=== PATIENT | female | born 1990 | race African-American/Black ===

== ENCOUNTER 2017-12-02 11:48 | Emergency (ER) | payer OTHER ==
[2017-12-02 11:54] VITALS: BP 138/59; PULSE 83; TEMP 98.3; BMI 48.1
--- NOTE | 2017-12-02 12:58 | PDOC ---
History of Present Illness - General Chief Complaint: Pain Stated Complaint: RT FOOT INJURY Time Seen by Provider: 12/02/17 12:52 History Source: Patient Exam Limitations: No Limitations - History of Present Illness Initial Comments: 12/02/17 13:11 Patient is here with complaints of right foot pain 2 days. 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 Had onset of pain to her right foot plantar aspect Occurred: reports: just prior to arrival Severity: reports: mild Pain Location: reports: lower extremity (right foot ) Modifying Factors: improves with: None Past History - Travel Traveled outside of the country in the last 30 days: No Close contact w/someone who was outside of country & ill: No - Past Medical History Allergies/Adverse Reactions: Allergies Allergy/AdvReac Type Severity Reaction Status Date / Time No Known Allergies Allergy Verified 12/02/17 11:54 Home Medications: Ambulatory Orders Naproxen [Naprosyn -] 500 mg PO BID #30 tablet 12/02/17 COPD: No - Suicide/Smoking/Psychosocial Hx Smoking History: Never smoked Have you smoked in the past 12 months: No Information on smoking cessation initiated: No Hx Alcohol Use: No Drug/Substance Use Hx: No Substance Use Type: Alcohol Trauma Specific PMHX - Complaint Specific PMHX Back Injury: No Neck Injury: No Review of Systems - Review of Systems Able to Perform ROS?: Yes Is the patient limited Barbadian proficient: Yes Constitutional: Yes: See HPI, Malaise. No: Symptoms Reported HEENTM: No: Symptoms Reported Respiratory: Yes: Symptoms reported Musculoskeletal: Yes: Symptoms Reported, Muscle Pain, Muscle Weakness Integumentary: Yes: Symptoms Reported, See HPI All Other Systems: Reviewed and Negative *Physical Exam - Vital Signs Last Vital Signs Temp Pulse Resp BP Pulse Ox 98.3 F 83 19 138/59 100 12/02/17 11:52 12/02/17 11:52 12/02/17 11:52 12/02/17 11:52 12/02/17 11:52 - Physical Exam General Appearance: Yes: Nourished, Appropriately Dressed, Apparent Distress, Mild Distress HEENT: positive: ROCAEL, Normal ENT Inspection, TMs Normal, Pharynx Normal Neck: positive: Supple. negative: Tender Respiratory/Chest: positive: Chest Tender, Lungs Clear Musculoskeletal: positive: Normal Inspection Extremity: positive: Normal Capillary Refill, Normal Inspection Integumentary: positive: Normal Color, Warm, Pale Neurologic: positive: tinner helper II-XII NML intact, Fully Oriented, Alert, Normal Mood/ Affect, Normal Response, Motor Strength 5 Progress Note - Progress Note Progress Note: Plantar fasciitis, will treat with NSAIDs and conservative measures *DC/Admit/Observation/Transfer Diagnosis at time of Disposition: Plantar fasciitis of right foot - Discharge Dispostion Disposition: HOME Condition at time of disposition: Stable Admit: No - Referrals - Patient Instructions Printed Discharge Instructions: DI for Plantar Fasciitis Additional Instructions: Rest, ice to area on and off for 15 minutes 4-6 times a day Avoid heavy lifting or exercise until pain and swelling is resolved or until further directed Keep area highly elevated to reduce swelling Wear supportive shoes/tennis shoes-sneakers Freeze water in a Coca-Cola bottle, and gently roll along bottom of foot to assist with icing the area Use splints/Louis wrap as directed Followup with orthopedist in one to 2 days if not improving, if significantly improved may wait one week for followup with orthopedist May consider alternative modalities including physical therapy, acupuncture or pressure, naturopathic rubs like Arnica creams May use Naprosyn 1 -under milligrams tablet every 8 hours for 2 days then as needed for pain - Post Discharge Activity Forms/Work/School Notes: Back to Work
[2017-12-02] MEDS ORDERED: KETOROLAC TROMETHAMINE 60 MG/2 ML VIAL IM ONE (13:07)
[2017-12-02] MEDS ORDERED: KETOROLAC TROMETHAMINE 60 MG/2 ML VIAL ONE (13:14)
== END 2017-12-02 13:40 | disposition home or self-care (01) ==
LOC: JERFT 11:48
PROC: 3E0233Z Introduction of Anti-inflammatory into Muscle, Percutaneous Approach (ICD-10-PCS; principal; 2017-12-02)
DX: M72.2 Plantar fascial fibromatosis (principal)
CPT/HCPCS: 99281-25

== ENCOUNTER 2017-12-30 13:34 | Emergency (ER) | payer OTHER ==
[2017-12-30 13:55] VITALS: BP 131/72; PULSE 92; TEMP 98.4; BMI 34.3
[2017-12-30 15:24] LABS: HCG,QUALITATIVE URINE NEGATIVE
--- NOTE | 2017-12-30 15:29 | PDOC ---
History of Present Illness - General Chief Complaint: Ear Problem Stated Complaint: EAR PROBLEM, BACK PAIN Time Seen by Provider: 12/30/17 15:09 History Source: Patient Exam Limitations: No Limitations - History of Present Illness Initial Comments: CHIEF COMPLAINT: 27 y/o female with right sided ear and face pain since yesterday. HISTORY OF PRESENT ILLNESS: The patient also admits to left low back pain, worse with movement for the past 1 week. She took tylenol once for the pain. She denies f/c, n/v/d, CP, SOB, cough, runny nose, nasal congestion, sore throat , toothache, hematuria, increased urinary frequency. Past History - Past Medical History Allergies/Adverse Reactions: Allergies Allergy/AdvReac Type Severity Reaction Status Date / Time No Known Allergies Allergy Verified 12/30/17 13:55 Home Medications: Ambulatory Orders Loratadine [Claritin] 10 mg PO DAILY #7 tablet 12/30/17 Nitrofurantoin Monohyd/M-Cryst [Macrobid -] 100 mg PO BID #14 capsule 12/30/17 COPD: No - Suicide/Smoking/Psychosocial Hx Smoking History: Never smoked Have you smoked in the past 12 months: No Hx Alcohol Use: No Drug/Substance Use Hx: No Substance Use Type: Alcohol Review of Systems - Review of Systems Able to Perform ROS?: Yes Constitutional: No: Chills, Fever HEENTM: Yes: Ear Pain (right). No: Ear Discharge, Nose Pain, Nose Congestion, Tinnitus, Hearing Loss, Throat Pain, Mouth Pain, Dental Problems, Difficulty Swallowing : No: Burning, Dysuria, Frequency, Flank Pain, Hematuria Musculoskeletal: Yes: Back Pain (right lower) Neurological: No: Symptoms reported *Physical Exam - Vital Signs Last Vital Signs Temp Pulse Resp BP Pulse Ox 98.4 F 92 H 16 131/72 100 12/30/17 13:50 12/30/17 13:50 12/30/17 13:50 12/30/17 13:50 12/30/17 13:50 - Physical Exam Comments: morbidly obese ambulatory female in NAD or obvious discomfort. General Appearance: Yes: Nourished, Appropriately Dressed HEENT: positive: EOMI, ROCAEL, Normal ENT Inspection, Pharynx Normal, TM Bulging ( left side; no erythema. good light reflex), Other (No tooth pain or gingival edema. No swelling to face. ). negative: Pharyngeal Erythema, Tonsillar Exudate, Tonsillar Erythema, Nasal Congestion, Sinus Tenderness, TM Dull, TM Erythema Neck: negative: Lymphadenopathy (R), Lymphadenopathy (L) Gastrointestinal/Abdominal: positive: Other (No flank pain b/l. No suprapubic TTP). negative: Tender Musculoskeletal: positive: Other (No midline lumbar spine TTP or step offs. MInimal pain with palpation of right lumbar paravertebral muscles. ). negative : CVA Tenderness (R), CVA Tenderness (L) Medical Decision Making - Medical Decision Making A/P: 27 y/o female with right sided ear and face pain since yesterday with right low back pain worse with movement x 1 week. Plan is as follows: 1. UA/hcg 2. PO motrin 3. PO claritin Patient cannot wait for urine to result because she has to go to work. Will discharge to home with rx for 1 week of claritin for ear pain and macrobid for UTI. States we will call her with any abnormal results. Suggested motrin for pain as well, follow up with doctor and return to the ER with any worsening or concerning symptoms. The patient verbalizes understanding of all instructions, has no further questions and is awaiting discharge. *DC/Admit/Observation/Transfer Diagnosis at time of Disposition: Earache on right Back pain Qualifiers: Back pain location: low back pain Chronicity: acute Back pain laterality: right Sciatica presence: without sciatica Qualified Code(s): M54.5 - Low back pain UTI (urinary tract infection) Qualifiers: Urinary tract infection type: acute cystitis Hematuria presence: without hematuria Qualified Code(s): N30.00 - Acute cystitis without hematuria - Discharge Dispostion Disposition: HOME Condition at time of disposition: Good - Prescriptions Prescriptions: Loratadine [Claritin] 10 mg PO DAILY #7 tablet Nitrofurantoin Monohyd/M-Cryst [Macrobid -] 100 mg PO BID #14 capsule - Referrals Referrals: Renetta Marin MD [Primary Care Provider] - Call tomorrow - Patient Instructions Printed Discharge Instructions: DI for Low Back Pain, DI for Ear Pain-Adult, DI for Urinary Tract Infection (UTI) Additional Instructions: Discharge Instructions: -2 prescriptions have been sent to your pharmacy; please take for ear pain and UTI. -Take motrin if needed for pain as well every 6 hours -Follow up with Dr. Marin in 1 week -Return to the ER with any worsening or concerning symptoms. - Post Discharge Activity
[2017-12-30 16:39] LABS: URINE APPEARANCE CLOUDY; URINE BILIRUBIN NEGATIVE (NEGATIVE); URINE BLOOD NEGATIVE (NEGATIVE); URINE COLOR YELLOW; URINE GLUCOSE (UA) NEGATIVE (NEGATIVE); URINE KETONE NEGATIVE (NEGATIVE); URINE NITRITE NEGATIVE (NEGATIVE); URINE UROBILINOGEN NEGATIVE mg/dL (0.2-1.0)
[2017-12-30 16:49] LABS: URINE LEUK ESTERASE 1+ (NEGATIVE); URINE PROTEIN 1+ (NEGATIVE)
[2017-12-30 17:16] LABS: EPI CELLS MODERATE /HPF (FEW); GRANULAR CASTS 1 /lpf; URINE BACTERIA MANY /hpf (NONE SEEN); URINE MUCUS MODERATE
== END 2017-12-30 17:04 | disposition home or self-care (01) ==
LOC: JERFT 13:34
DX: H92.01 Otalgia, right ear (principal); N30.00 Acute cystitis without hematuria; M54.5 Low back pain
CPT/HCPCS: 81003; 81015; 84703; 87086; 87186; 99281-25

== ENCOUNTER 2018-04-07 20:40 | Emergency (ER) | payer OTHER ==
[2018-04-07 20:47] VITALS: BP 135/85; PULSE 86; TEMP 98.3; BMI 36.6
--- NOTE | 2018-04-07 21:02 | PDOC ---
Rapid Medical Evaluation Chief Complaint: Nausea/Vomiting Time Seen by Provider: 04/07/18 20:58 Medical Evaluation: Allergies Allergy/AdvReac Type Severity Reaction Status Date / Time No Known Allergies Allergy Verified 04/07/18 20:42 Vital Signs Temp Pulse Resp BP Pulse Ox 98.3 F 86 18 135/85 100 04/07/18 20:43 04/07/18 20:43 04/07/18 20:43 04/07/18 20:43 04/07/18 20:43 04/07/18 20:59 I have performed a brief in-person evaluation of this patient. The patient presents with a chief complaint of: RUQ pain with n/v/d Pertinent physical exam findings: Tender RUQ. I have ordered the following: urine, labs, sono The patient will proceed to the ED for further evaluation. Discharge Disposition - Diagnosis Abdominal pain - Referrals Referrals: Renetta Marin MD [Primary Care Provider] - - Patient Instructions - Post Discharge Activity
--- NOTE | 2018-04-07 21:56 | PDOC ---
Attending Attestation - HPI HPI: 04/07/18 22:48 Patient is a 27 year old female with no significant past medical history who presents to the ED with complaints of abdominal pain that began x2 days ago. Patient reports abdominal pain is a constant, dull 5/10. She reports abdominal pain initially began in the superpubic area but has since radiated to the epigastric region where is has remained, prompting her to come into the ED for further evaluation. Denies chest pain, sob. Denies contact with sick individuals, out of state travelling. Denies dysuria, hematuria, constipation, diarrhea. Denies any other symptoms. Allergies: None Social history: No smoking. No alcohol. No illicit drugs. Surgical history: None PMD: Dr. Renetta Marin. <Juanito Gray - Last Filed: 04/07/18 22:48> - Resident Resident Name: Ronaldo Soni - ED Attending Attestation I have performed the following: I have examined & evaluated the patient, The case was reviewed & discussed with the resident, I agree w/resident's findings & plan, Exceptions are as noted - Physicial Exam PE: 04/12/18 19:22 *Physical Exam General Appearance: Yes: Appropriately Dressed. No: Apparent Distress, Intoxicated HEENT: positive: EOMI, ROCAEL, Normal ENT Inspection, Normal Voice, TMs Normal, Pharynx Normal. negative: Pale Conjunctivae, Photophobia, Scleral Icterus (R), Scleral Icterus (L) Neck: positive: Trachea midline, Normal Thyroid, Supple. negative: Tender, Rigid, Carotid bruit, Stridor, Lymphadenopathy (R), Lymphadenopathy (L), Thyromegaly Respiratory/Chest: positive: Lungs Clear, Normal Breath Sounds. negative: Chest Tender, Respiratory Distress, Accessory Muscle Use, Labored Respiration, RES, Crackles, Rales, Rhonchi, Stridor, Wheezing, Dullness Cardiovascular: positive: Regular Rhythm, Regular Rate, S1, S2. negative: Edema , JVD, Murmur, Bradycardia, Tachycardia Vascular Pulses: Dorsalis-Pedis (R): 2+, Doralis-Pedis (L): 2+ Gastrointestinal/Abdominal: positive: Normal Bowel Sounds, Flat, Soft. negative : Tender, Organomegaly, Pulsatile Mass, Increased Bowel Sounds, Decreased BS, Distended, Guarding, Rebound, Hernia, Hepatomegaly, Spleenomegaly Lymphatic: negative: Adenopathy, Tenderness Musculoskeletal: positive: Normal Inspection. negative: CVA Tenderness, Decreased Range of Motion Extremity: positive: Normal Capillary Refill, Normal Inspection, Normal Range of Motion, Pelvis Stable. negative: Tender, Pedal Edema, Swelling, Erythema Integumentary: positive: Normal Color, Dry, Warm. negative: Cyanotic, Erythema , Jaundice, Rash Neurologic: positive: donor technician II-XII NML intact, Fully Oriented, Alert, Normal Mood/ Affect, Motor Strength 5/5. negative: EOM Palsy, Facial Droop, Sensory Deficit - Medical Decision Making 04/12/18 19:23 Pt treated and released <Hugo Lino - Last Filed: 04/12/18 19:23>
[2018-04-07] MEDS ORDERED: ONDANSETRON 4 MG/2 ML VIAL IVPUSH ONE (22:00)
[2018-04-07] MEDS ORDERED: SODIUM CHLORIDE 0.9% 1000 ML INFUS.BAG IV ONE (22:00)
[2018-04-07] MEDS ORDERED: ONDANSETRON 4 MG/2 ML VIAL ONE ×2 (22:18→22:54)
[2018-04-07 22:42] LABS: HCG,QUALITATIVE URINE NEGATIVE
[2018-04-07 22:43] LABS: URINE APPEARANCE CLEAR; URINE BILIRUBIN NEGATIVE (<2.0 mg/dL); URINE COLOR LTYELLOW; URINE GLUCOSE (UA) NEGATIVE (NEGATIVE); URINE KETONE NEGATIVE (NEGATIVE); URINE LEUK ESTERASE NEGATIVE (NEGATIVE); URINE NITRITE NEGATIVE (NEGATIVE); URINE PROTEIN NEGATIVE (NEGATIVE); URINE UROBILINOGEN NEGATIVE mg/dL (0.2-1.0)
[2018-04-07 22:47] LABS: BASO % 0.9 % (0-2.0); HEMATOCRIT 34.6 % (32.4-45.2); HEMOGLOBIN 11.1 GM/dL (10.7-15.3); LYMPH % 30.3 % (8-40); MCH 20.1 pg (25.7-33.7); MCHC 32.2 g/dl (32.0-36.0); MEAN CELL VOLUME 62.5 fl (80-96); MEAN PLT VOLUME 9.1 fl (7.5-11.1); MONO % 7.8 % (3.8-10.2); PLATELET COUNT 416 K/MM3 (134-434); RBC 5.53 M/mm3 (3.60-5.2); RDW 18.6 % (11.6-15.6); WHITE BLOOD COUNT 9.3 K/mm3 (4.0-10.0)
[2018-04-07 23:02] LABS: ALBUMIN 3.8 g/dl (3.4-5.0); ANION GAP 9 (8-16); BILIRUBIN,TOTAL 0.4 mg/dL (0.2-1.0); BLOOD UREA NITROGEN 15 mg/dL (7-18); CALCIUM 9.2 mg/dL (8.5-10.1); CHLORIDE 104 mmol/L (98-107); CO2 28 mmol/L (21-32); CREATININE 0.8 mg/dL (0.55-1.02); GLUCOSE,RANDOM 84 mg/dL (74-106); LIPASE 97 U/L (73-393); POTASSIUM 3.9 mmol/L (3.5-5.1); SGOT/AST 13 U/L (15-37); SGPT/ALT 17 U/L (12-78); SODIUM 141 mmol/L (136-145); TOT PROT 8.1 g/dl (6.4-8.2)
[2018-04-07 23:03] LABS: ALK PHOS 76 U/L (45-117)
--- NOTE | 2018-04-08 00:29 | PDOC ---
History of Present Illness - General Chief Complaint: Nausea/Vomiting Stated Complaint: WEAK Time Seen by Provider: 04/07/18 20:58 History Source: Patient Exam Limitations: No Limitations - History of Present Illness Initial Comments: 04/08/18 00:28 The patient is a 27F with no PMH who presents with abdominal pain. The patient states that she's had 2 days of abdominal pain located in her epigastrium which she describes as pressure, nonradiating, not exacerbated or alleviated by any factors, and associated with diarrhea, nausea, and NBNB vomiting. She denies any fever, chills, blood in diarrhea, CP, SOB. Past History - Past Medical History Allergies/Adverse Reactions: Allergies Allergy/AdvReac Type Severity Reaction Status Date / Time No Known Allergies Allergy Verified 04/07/18 20:42 Home Medications: Ambulatory Orders Loratadine [Claritin] 10 mg PO DAILY #7 tablet 12/30/17 Nitrofurantoin Monohyd/M-Cryst [Macrobid -] 100 mg PO BID #14 capsule 12/30/17 Ondansetron [Zofran -] 4 mg PO BID #10 tablet 04/08/18 COPD: No - Suicide/Smoking/Psychosocial Hx Smoking History: Never smoked Have you smoked in the past 12 months: No Information on smoking cessation initiated: No Hx Alcohol Use: Yes Drug/Substance Use Hx: No Substance Use Type: Alcohol Review of Systems - Review of Systems Able to Perform ROS?: Yes Comments:: 04/08/18 00:41 GENERAL/CONSTITUTIONAL: No fever or chills. No weakness. HEAD, EYES, EARS, NOSE AND THROAT: No change in vision. No ear pain or discharge. No sore throat. CARDIOVASCULAR: No chest pain, palpitations, or lightheadedness. RESPIRATORY: No cough, wheezing, shortness of breath, or hemoptysis. GASTROINTESTINAL: Positive for nausea, vomiting, diarrhea, and abdominal pain. GENITOURINARY: No dysuria, frequency, hematuria, or change in urination. MUSCULOSKELETAL: No joint or muscle swelling or pain. No neck or back pain. SKIN: No rash or lesions. NEUROLOGIC: No headache, numbness, tingling, weakness, loss of consciousness, or change in strength/sensation. ENDOCRINE: No increased thirst. No abnormal weight change. HEMATOLOGIC/LYMPHATIC: No anemia, easy bleeding, or history of blood clots. ALLERGIC/IMMUNOLOGIC: No hives or skin allergy. Is the patient limited German proficient: No *Physical Exam - Vital Signs Last Vital Signs Temp Pulse Resp BP Pulse Ox 98.3 F 86 18 135/85 100 04/07/18 20:43 04/07/18 20:43 04/07/18 20:43 04/07/18 20:43 04/07/18 20:43 - Physical Exam Comments: 04/08/18 00:42 GENERAL: Well developed, well nourished. Awake and alert. No acute distress. HEENT: Normocephalic, atraumatic. Hearing grossly normal. Moist mucous membranes. PERRLA, EOMI. No conjunctival pallor. Sclera are non-icteric. NECK: Supple. Full ROM. CARDIOVASCULAR: Regular rate and rhythm. No murmurs, rubs, or gallops. PULMONARY: No evidence of respiratory distress. Lungs clear to auscultation bilaterally. No wheezing, rales or rhonchi. ABDOMINAL: Soft. Tender to deep palpation in epigastrium. Negative Choe's sign.. Non-distended. GENITOURINARY: No CVA tenderness bilaterally. MUSCULOSKELETAL: Normal range of motion at all joints. No bony deformities or tenderness. EXTREMITIES: No cyanosis. No clubbing. No edema. No calf tenderness or swelling. SKIN: Warm and dry. Normal capillary refill. No rashes. No jaundice. NEUROLOGICAL: Alert, awake, appropriate. Cranial nerves 2-12 intact. Normal speech. Gait is normal without ataxia. PSYCHIATRIC: Cooperative. Good eye contact. Appropriate mood and affect. ED Treatment Course - LABORATORY CBC & Chemistry Diagram: 04/07/18 22:00 04/07/18 22:00 - ADDITIONAL ORDERS Additional order review: Laboratory Results 04/07/18 04/07/18 22:00 22:00 Sodium 141 Potassium 3.9 Chloride 104 Carbon Dioxide 28 Anion Gap 9 BUN 15 Creatinine 0.8 Creat Clearance w eGFR > 60 Random Glucose 84 Calcium 9.2 Total Bilirubin 0.4 AST 13 L ALT 17 Alkaline Phosphatase 76 Total Protein 8.1 Albumin 3.8 Lipase 97 Urine Color Ltyellow Urine Appearance Clear Urine pH 5.0 Ur Specific [place] 1.018 Urine Protein Negative Urine Glucose (UA) Negative Urine Ketones Negative Urine Blood Negative Urine Nitrite Negative Urine Bilirubin Negative Urine Urobilinogen Negative Ur Leukocyte Esterase Negative Urine HCG, Qual Negative 04/07/18 22:00 RBC 5.53 H MCV 62.5 L MCHC 32.2 RDW 18.6 H MPV 9.1 Neutrophils % 59.0 Lymphocytes % 30.3 Monocytes % 7.8 Eosinophils % 2.0 Basophils % 0.9 - Medications Given in the ED: ED Medications Discontinued Medications Generic Name Dose Route Start Last Admin Trade Name Sasha PRN Reason Stop Dose Admin Ondansetron HCl 4 mg 04/07/18 22:00 04/07/18 23:01 Zofran Injection IVPUSH 04/07/18 22:01 4 mg ONCE ONE Administration Sodium Chloride 1,000 ml 04/07/18 22:00 04/07/18 23:01 Normal Saline - IV 04/07/18 22:01 1,000 ml ONCE ONE Administration Medical Decision Making - Medical Decision Making 04/08/18 00:43 The patient is a 27F with no PMH who presents to the ER with complaints of abdominal pain, vomiting, and diarrhea which started yesterday. U/S of RUQ negative for cholecystitis/lithiasis. CBC, CMP, and UA WNL. Given 1 L and zofran. Pt states she feels much better. Will d/c home with zofran. *DC/Admit/Observation/Transfer Diagnosis at time of Disposition: Abdominal pain Qualifiers: Abdominal location: epigastric Qualified Code(s): R10.13 - Epigastric pain - Discharge Dispostion Disposition: HOME Condition at time of disposition: Stable Decision to Admit order: No - Prescriptions Prescriptions: Ondansetron [Zofran -] 4 mg PO BID #10 tablet - Referrals Referrals: Renetta Marin MD [Primary Care Provider] - - Patient Instructions Printed Discharge Instructions: DI for Viral Gastroenteritis -- Adult Additional Instructions: Please follow up with your primary care physician in 2-3 days. Please return to the ER if you have any signs or symptoms of chest pain, shortness of breath, uncontrollable fever, chills, nausea, vomiting, numbness, tingling, or weakness in any part of your body, changes in vision, or slurred speech. Please take your medications as prescribed. Please return to the ER if symptoms persist, worsen, or new symptoms arise. - Post Discharge Activity
== END 2018-04-08 00:32 | disposition home or self-care (01) ==
LOC: JER 20:40
PROC: 3E033GC Introduction of Other Therapeutic Substance into Peripheral Vein, Percutaneous Approach (ICD-10-PCS; principal; 2018-04-07)
DX: A08.4 Viral intestinal infection, unspecified (principal); B97.89 Other viral agents as the cause of diseases classified elsewhere
CPT/HCPCS: 36415; 76705-TC; 80053; 81003; 83690; 84703; 85025; 99282-25; J7030

== ENCOUNTER 2018-09-20 21:17 | Emergency (ER) | payer OTHER ==
[2018-09-20 21:25] VITALS: BP 161/85; PULSE 104; TEMP 98.9; BMI 38.6
--- NOTE | 2018-09-20 21:25 | PDOC ---
Rapid Medical Evaluation Time Seen by Provider: 09/20/18 21:22 Medical Evaluation: Allergies Allergy/AdvReac Type Severity Reaction Status Date / Time No Known Allergies Allergy Verified 04/07/18 20:42 09/20/18 21:22 Pt presents to the ED for difficulty breathing and throat pain. Feels like she is choking. States that the cool air makes her symptoms better Exam: Tonsils mildly erythematous, no exudate or edema Orders: Rapid strep Pt to proceeds to the ED for further evaluation Discharge Disposition - Diagnosis Choking sensation - Referrals - Patient Instructions - Post Discharge Activity
--- NOTE | 2018-09-20 22:33 | PDOC ---
History of Present Illness - General Chief Complaint: Sore Throat Stated Complaint: CHOKING SENSATION Time Seen by Provider: 09/20/18 21:22 - History of Present Illness Initial Comments: 09/20/18 22:29 27-year-old female without comorbidities presents for evaluation of sore throat and hoarse voice and reflux-like symptoms times one week. No other associated symptoms. He was seen at outside Hospital and diagnosed with viral pharyngitis Past History - Past Medical History Allergies/Adverse Reactions: Allergies Allergy/AdvReac Type Severity Reaction Status Date / Time No Known Allergies Allergy Verified 09/20/18 21:23 Home Medications: Ambulatory Orders Loratadine [Claritin] 10 mg PO DAILY #7 tablet 12/30/17 Famotidine [Pepcid] 20 mg PO DAILY #10 tablet 09/20/18 COPD: No - Suicide/Smoking/Psychosocial Hx Smoking History: Never smoked Have you smoked in the past 12 months: No Hx Alcohol Use: Yes Drug/Substance Use Hx: No Substance Use Type: Alcohol Review of Systems - Review of Systems HEENTM: Yes: Throat Pain ABD/GI: Yes: Indigestion All Other Systems: Reviewed and Negative *Physical Exam - Vital Signs Last Vital Signs Temp Pulse Resp BP Pulse Ox 98.9 F 104 H 18 161/85 100 09/20/18 21:23 09/20/18 21:23 09/20/18 21:23 09/20/18 21:23 09/20/18 21:23 - Physical Exam Comments: 09/20/18 22:30 HEAD: NC/AT EYES: Conjuntiva clear Ears: Canals and TM's normal NOSE: No d/c THROAT: Moist mucous membrances, oral pharanx clear, uvula midline NECK: Supple without adenopathy CARDIAC: S1 S2 LUNGS: CTA Full and Equal breath sounds ABDOMEN: Soft NT ND MS: Full ROM in all joints without edema NEUROLOGIC: No gross sensory or motor deficits, NVID SKIN: Normal color and temperature no lesions or rashes ED Treatment Course - ADDITIONAL ORDERS Additional order review: 09/20/18 21:26 Group A Strep Rapid Antigen - Final Throat Medical Decision Making - Medical Decision Making 09/20/18 22:30 This most likely is a viral pharyngitis with reflux like symptoms. Up place her on an H2 jud and have her follow-up with her primary care physician *DC/Admit/Observation/Transfer Diagnosis at time of Disposition: Viral pharyngitis, GERD (gastroesophageal reflux disease) Diagnosis at time of Disposition: (Ruled Out): Choking sensation - Discharge Dispostion Disposition: HOME Condition at time of disposition: Stable Decision to Admit order: No - Referrals Referrals: Renetta Marin MD [Primary Care Provider] - - Patient Instructions Printed Discharge Instructions: Viral Pharyngitis, DI for Viral Pharyngitis, Gastroesophageal Reflux Disease (Alternative Therapy), DI for Gastroesophageal Reflux Disease (GERD), GERD Diet Additional Instructions: Return to the emergency room should symptoms worsen or go unresolved. Please take the Pepcid as directed follow-up with your primary care physician in one to 2 days for further evaluation and treatment options. - Post Discharge Activity
== END 2018-09-20 22:41 | disposition home or self-care (01) ==
LOC: JERFT 21:17
DX: J02.9 Acute pharyngitis, unspecified (principal); B97.89 Other viral agents as the cause of diseases classified elsewhere; K21.9 Gastro-esophageal reflux disease without esophagitis
CPT/HCPCS: 87070; 87430; 99281-25

== ENCOUNTER 2019-08-19 09:59 | Emergency (ER) | payer OTHER ==
[2019-08-19 10:10] VITALS: BP 134/88; PULSE 88; TEMP 98.5; BMI 41.1
--- NOTE | 2019-08-19 10:25 | PDOC ---
History of Present Illness - General Chief Complaint: Cold Symptoms Stated Complaint: Cough Time Seen by Provider: 08/19/19 10:18 History Source: Patient - History of Present Illness Associated Symptoms: reports: cough, nasal drainage, sore throat. denies: earache, facial pain, fever/chills, nasal congestion, shortness of breath Past History - Travel Traveled outside of the country in the last 30 days: No - Past Medical History Allergies/Adverse Reactions: Allergies Allergy/AdvReac Type Severity Reaction Status Date / Time No Known Allergies Allergy Verified 09/20/18 21:23 Home Medications: Ambulatory Orders Loratadine [Claritin] 10 mg PO DAILY #7 tablet 12/30/17 Famotidine [Pepcid] 20 mg PO DAILY #10 tablet 09/20/18 Azithromycin 250 mg PO DAILY 5 Days #6 tablet 08/19/19 Benzonatate [Tessalon Pearls -] 100 mg PO TID #21 capsule 08/19/19 Cetirizine HCl 10 mg PO DAILY 30 Days #30 tablet 08/19/19 COPD: No - Immunization History Immunization Up to Date: No - Psycho Social/Smoking Cessation Hx Smoking History: Unknown if ever smoked Have you smoked in the past 12 months: No Information on smoking cessation initiated: No Hx Alcohol Use: No Drug/Substance Use Hx: No Substance Use Type: Alcohol Review of Systems - Review of Systems Is the patient limited Khmer proficient: No Constitutional: No: Chills, Fever HEENTM: Yes: Throat Pain. No: Throat Swelling Respiratory: Yes: Cough, Productive cough. No: Shortness of Breath, Wheezing Cardiac (ROS): No: Chest Pain, Chest Tightness ABD/GI: No: Diarrhea, Nausea, Vomiting *Physical Exam - Vital Signs Last Vital Signs Temp Pulse Resp BP Pulse Ox 98.5 F 88 18 134/88 100 08/19/19 10:05 08/19/19 10:05 08/19/19 10:05 08/19/19 10:05 08/19/19 10:05 - Physical Exam General Appearance: Yes: Nourished HEENT: positive: TMs Normal, Tonsillar Erythema, Rhinorrhea. 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 NML intact, Fully Oriented, Alert, Normal Mood/ Affect, Normal Response, Motor Strength 03/26 Medical Decision Making - Medical Decision Making 08/19/19 13:22 28y/o F with sorethroat and cough X 3 days denies fever or chills non smoker strep neg supportive measures advised Discharge - Discharge Information Problems reviewed: Yes Clinical Impression/Diagnosis: URI, acute Condition: Stable Disposition: HOME - Admission No - Additional Discharge Information Prescriptions: Azithromycin 250 mg PO DAILY 5 Days #6 tablet Benzonatate [Tessalon Pearls -] 100 mg PO TID #21 capsule Cetirizine HCl 10 mg PO DAILY 30 Days #30 tablet Prescription Drug Monitoring Program (I-STOP) results: I-STOP not reviewed - Follow up/Referral Referrals: Renetta Marin MD [Primary Care Provider] - - Patient Discharge Instructions Patient Printed Discharge Instructions: How to Avoid a Cold or Flu, DI for Common Cold Additional Instructions: Please increase fluids take medications as prescribed follow up with your PCP return to the ER If worsening symptoms occurs. - Post Discharge Activity
== END 2019-08-19 10:28 | disposition home or self-care (01) ==
LOC: JERFT 09:59
DX: J06.9 Acute upper respiratory infection, unspecified (principal)
CPT/HCPCS: 99281-25

== ENCOUNTER 2019-11-03 08:19 | Emergency (ER) | payer OTHER ==
[2019-11-03 08:39] VITALS: BP 127/88; PULSE 95; TEMP 98.2; BMI 39.9
--- NOTE | 2019-11-03 09:05 | PDOC ---
History of Present Illness - General Chief Complaint: Cold Symptoms Stated Complaint: COLD SYMPTOMS Time Seen by Provider: 11/03/19 09:05 - History of Present Illness Initial Comments: 11/03/19 09:05 CHIEF COMPLAINT: cold symptoms HISTORY OF PRESENT ILLNESS: 29 yo F with no PMH [facility] with cough, runny nose, congestion, body aches and subjective fever x 2 days. Patient denies any vomiting or diarrhea but reports intermittent epigastric discomfort. Patient reports she has been taking Sudafed and Nyquil and Dayquil with minimal relief. No recent travel or sick contacts. PAST MEDICAL HISTORY: Denies past medical history FAMILY HISTORY: Denies SOCIAL HISTORY: LDenies tobacco, alcohol, illicit drug use. SURGICAL HISTORY: Denies ALLERGIES: No known drug allergies REVIEW OF SYSTEMS General/Constitutional: Subjective fever, chills. Denies weakness, weight change. HEENT: Denies change in vision. Denies ear pain or discharge. Denies sore throat. Cardiovascular: Denies chest pain or shortness of breath. Respiratory: Cough. Denies wheezing, or hemoptysis. Gastrointestinal: Denies nausea, vomiting, diarrhea or constipation. Denies rectal bleeding. Genitourinary: Denies dysuria, frequency, or change in urination. Musculoskeletal: Denies joint or muscle swelling or pain. Denies neck or back pain. Skin and breasts: Denies rash or easy bruising. Neurologic: Denies headache, vertigo, loss of consciousness, or loss of sensation. Psychiatric: Denies depression or anxiety. PHYSICAL EXAM General Appearance: Well-appearing, appropriately dressed. No apparent distress. HEENT: Post nasal drip. Swollen turbinates. EOMI, PERRLA, normal ENT inspection , normal voice, TMs normal, pharynx normal. No conjunctival pallor. No photophobia, scleral icterus. Neck: Supple. Trachea midline. No tenderness, rigidity, carotid bruit, stridor , lymphadenopathy, or thyromegaly. Respiratory/Chest: Lungs CTAB. No shortness of breath, chest tenderness, respiratory distress, accessory muscle use. No crackles, rales, rhonchi, stridor , wheezing, dullness Cardiovascular: RRR. S1, S2. No JVD, murmur, bradycardia, tachycardia. Vascular Pulses: Dorsalis-Pedis (R): 2+, Dorsalis-Pedis (L): 2+ Gastrointestinal/Abdominal: Normal bowel sounds. Abdomen soft, non-distended. No tenderness or rebound tenderness. No organomegaly, pulsatile mass, guarding , hernia, hepatomegaly, splenomegaly. Lymphatic: No adenopathy, tenderness. Musculoskeletal/Extremities: Normal inspection. FROM of all extremities, normal capillary refill. Pelvis Stable. No CVA tenderness. No tenderness to extremities, pedal edema, swelling, erythema or deformity. Integumentary: Appropriate color, dry, warm. No cyanosis, erythema, jaundice or rash Neurologic: md urologist II-XII intact. Fully oriented, alert. Appropriate mood/affect. Motor strength 5/5. No appreciable EOM palsy, facial droop or sensory deficit. Past History - Past Medical History Allergies/Adverse Reactions: Allergies Allergy/AdvReac Type Severity Reaction Status Date / Time No Known Allergies Allergy Verified 11/03/19 08:36 Home Medications: Ambulatory Orders Loratadine [Claritin] 10 mg PO DAILY #7 tablet 12/30/17 Azithromycin 250 mg PO DAILY 5 Days #6 tablet 08/19/19 Cetirizine HCl 10 mg PO DAILY 30 Days #30 tablet 08/19/19 Benzonatate [Tessalon Perle -] 100 mg PO TID #21 capsule 11/03/19 Famotidine [Pepcid] 20 mg PO DAILY #10 tablet 11/03/19 Pseudoephedrine HCl [Pseudoephedrine ER] 120 mg PO BID #20 tablet.er 11/03/19 COPD: No - Immunization History Immunization Up to Date: No - Psycho Social/Smoking Cessation Hx Smoking History: Never smoked Have you smoked in the past 12 months: No Hx Alcohol Use: No Drug/Substance Use Hx: No Substance Use Type: Alcohol *Physical Exam - Vital Signs Last Vital Signs Temp Pulse Resp BP Pulse Ox 98.2 F 95 H 17 127/88 100 11/03/19 08:37 11/03/19 08:37 11/03/19 08:37 11/03/19 08:37 11/03/19 08:37 Medical Decision Making - Medical Decision Making 11/03/19 09:22 29 yo F with no PMH [facility] with cough, runny nose, congestion, body aches and subjective fever x 2 days. -flu swab flu negative. Likely viral URI, will treat symptomatically. Advised patient to take medication as prescribed and follow up with PCP in one week. Advised patient of signs and symptoms for return to ED. Patient verbalized understanding and agrees to plan. Discharge - Discharge Information Problems reviewed: Yes Clinical Impression/Diagnosis: Viral URI Condition: Stable Disposition: HOME - Admission No - Additional Discharge Information Prescriptions: Benzonatate [Tessalon Perle -] 100 mg PO TID #21 capsule Famotidine [Pepcid] 20 mg PO DAILY #10 tablet Pseudoephedrine HCl [Pseudoephedrine ER] 120 mg PO BID #20 tablet.er - Follow up/Referral Referrals: Renetta Marin MD [Primary Care Provider] - - Patient Discharge Instructions Patient Printed Discharge Instructions: DI for Viral Upper Respiratory Infection -- Adult Additional Instructions: Please take medications as prescribed. Follow-up with your primary care doctor in 1 week. If you develop worsening cough, persistent fever, vomiting, diarrhea , or any new or worsening symptoms, please return to the ER. - Post Discharge Activity Work/Back to School Note: Back to Work
== END 2019-11-03 10:02 | disposition home or self-care (01) ==
LOC: JER 08:19 → JERFT 08:19
DX: J06.9 Acute upper respiratory infection, unspecified (principal)
CPT/HCPCS: 87804; 99281-25

== ENCOUNTER 2019-11-06 11:16 | Emergency (ER) | payer OTHER ==
[2019-11-06 11:32] VITALS: BP 115/82; PULSE 105; TEMP 98.2; BMI 39.9
[2019-11-06] MEDS ORDERED: MAG HYDROX/AL HYDROX/SIMETH 30 ML UNIT-DOSE CUP PO ONE (11:59)
[2019-11-06] MEDS ORDERED: LIDOCAINE VISCOUS 2% ORAL/TOP 20 ML UNIT-DOSE CUP MM ONE (12:00)
[2019-11-06] MEDS ORDERED: diphenhydrAMINE HCL 12.5 MG/5 ML UNIT-DOSE CUPS PO ONE (12:01)
[2019-11-06] MEDS ORDERED: diphenhydrAMINE HCL 12.5 MG/5 ML BULK BOTTLE ONE (12:08)
[2019-11-06] MEDS ORDERED: MAG HYDROX/AL HYDROX/SIMETH 30 ML UNIT-DOSE CUP ONE (12:08)
[2019-11-06] MEDS ORDERED: LIDOCAINE VISCOUS 2% ORAL/TOP 20 ML UNIT-DOSE CUP ONE (12:08)
[2019-11-06 12:29] LABS: BASO % 1.1 % (0-2.0); EOS % 2.7 % (0-4.5); HEMATOCRIT 34.6 % (32.4-45.2); HEMOGLOBIN 11.1 GM/dL (10.7-15.3); LYMPH % 37.9 % (8-40); MCHC 32.2 g/dl (32.0-36.0); MEAN CELL VOLUME 59.6 fl (80-96); MEAN PLT VOLUME 8.8 fl (7.5-11.1); MONO % 6.9 % (3.8-10.2); NEUT % 51.4 % (42.8-82.8); PLATELET COUNT 419 K/MM3 (134-434); RDW 20.6 % (11.6-15.6); WHITE BLOOD COUNT 7.5 K/mm3 (4.0-10.0)
[2019-11-06 12:44] LABS: MCH 19.2 pg (25.7-33.7)
[2019-11-06 12:49] LABS: ALBUMIN 3.7 g/dl (3.4-5.0); BILIRUBIN,TOTAL 0.4 mg/dL (0.2-1); BLOOD UREA NITROGEN 6.2 mg/dL (7-18); CALCIUM 9.2 mg/dL (8.5-10.1); CREATININE 0.6 mg/dL (0.55-1.3); POTASSIUM 4.1 mmol/L (3.5-5.1); TOT PROT 7.8 g/dl (6.4-8.2)
--- NOTE | 2019-11-06 12:57 | PDOC ---
History of Present Illness - General Chief Complaint: Pain Stated Complaint: ABD. PAIN Time Seen by Provider: 11/06/19 11:34 - History of Present Illness Initial Comments: 11/06/19 12:54 29-year-old female without comorbidities presents for evaluation of abdominal pain in the epigastric area x1 day without systemic symptoms Past History - Past Medical History Allergies/Adverse Reactions: Allergies Allergy/AdvReac Type Severity Reaction Status Date / Time No Known Allergies Allergy Verified 11/06/19 11:30 Home Medications: Ambulatory Orders Loratadine [Claritin] 10 mg PO DAILY #7 tablet 12/30/17 Azithromycin 250 mg PO DAILY 5 Days #6 tablet 08/19/19 Cetirizine HCl 10 mg PO DAILY 30 Days #30 tablet 08/19/19 Benzonatate [Tessalon Perle -] 100 mg PO TID #21 capsule 11/03/19 Famotidine [Pepcid] 20 mg PO DAILY #10 tablet 11/03/19 Pseudoephedrine HCl [Pseudoephedrine ER] 120 mg PO BID #20 tablet.er 11/03/19 Famotidine [Pepcid] 20 mg PO DAILY #30 tablet 11/06/19 COPD: No - Immunization History Immunization Up to Date: No - Psycho Social/Smoking Cessation Hx Smoking History: Never smoked Have you smoked in the past 12 months: No Information on smoking cessation initiated: No Hx Alcohol Use: No Drug/Substance Use Hx: No Substance Use Type: Alcohol Review of Systems - Review of Systems ABD/GI: Yes: See HPI, Poor Appetite, Indigestion. No: Constipated, Diarrhea, Nausea, Vomiting *Physical Exam - Vital Signs Last Vital Signs Temp Pulse Resp BP Pulse Ox 98.2 F 105 H 18 115/82 98 11/06/19 11:30 11/06/19 11:30 11/06/19 11:30 11/06/19 11:30 11/06/19 11:30 - Physical Exam 11/06/19 12:55 GENERAL: The patient is awake, alert, and fully oriented, in no acute distress. HEAD: Normal with no signs of trauma. EYES: sclera anicteric, conjunctiva clear. ENT: Ears normal tympanic membranes normal oropharynx clear uvula midline NECK: Normal range of motion LUNGS: Breath sounds equal, clear to auscultation bilaterally. No wheezes, and no crackles. HEART: S1 and S2 without murmur, rub or gallop. ABDOMEN: Soft, nontender, normoactive bowel sounds. No guarding, no rebound. No masses. EXTREMITIES: Normal range of motion, no edema. No clubbing or cyanosis. No cords, erythema, or tenderness. NEUROLOGICAL: Cranial nerves II through XII grossly intact. Normal speech, normal gait. PSYCH: Normal mood, normal affect. SKIN: Warm, Dry, normal turgor, no rashes or lesions noted. ED Treatment Course - LABORATORY CBC & Chemistry Diagram: 11/06/19 12:16 11/06/19 12:16 - ADDITIONAL ORDERS Additional order review: Laboratory Results 11/06/19 11/06/19 11/06/19 12:16 12:16 12:16 Sodium 140 Potassium 4.1 Chloride 106 Carbon Dioxide 27 Anion Gap 7 L BUN 6.2 L Creatinine 0.6 Est GFR (CKD-EPI)AfAm 141.76 Est GFR (CKD-EPI)NonAf 122.31 Random Glucose 105 Calcium 9.2 Total Bilirubin 0.4 AST 17 ALT 26 Alkaline Phosphatase 68 Total Protein 7.8 Albumin 3.7 Lipase 125 Serum , Qual Negative 11/06/19 12:16 RBC 5.80 H MCV 59.6 L MCHC 32.2 RDW 20.6 H MPV 8.8 Neutrophils % 51.4 Lymphocytes % 37.9 D Monocytes % 6.9 Eosinophils % 2.7 Basophils % 1.1 - Medications Given in the ED: ED Medications Discontinued Medications Generic Name Dose Route Start Last Admin Trade Name Freq PRN Reason Stop Dose Admin Al Hydroxide/Mg Hydroxide 30 ml 11/06/19 11:59 11/06/19 12:19 Mylanta Oral Suspension - PO 11/06/19 12:00 30 ml ONCE ONE Administration Diphenhydramine HCl 25 mg 11/06/19 12:01 11/06/19 12:19 Benadryl Oral Solution - PO 11/06/19 12:02 25 mg ONCE ONE Administration Lidocaine HCl 20 ml 11/06/19 12:00 11/06/19 12:19 Xylocaine 2% Viscous Oral - MM 11/06/19 12:01 20 ml ONCE ONE Administration Medical Decision Making - Medical Decision Making 11/06/19 12:55 Benign examination negative lab results minimal relief with GI cocktail will place patient on a H2 jud and have her follow-up with GI Discharge - Discharge Information Problems reviewed: Yes Clinical Impression/Diagnosis: GERD (gastroesophageal reflux disease) Condition: Stable Disposition: HOME - Admission No - Follow up/Referral Referrals: Renetta Marin MD [Primary Care Provider] - Rashaun Krause MD [Staff Physician] - - Patient Discharge Instructions Patient Printed Discharge Instructions: GERD Diet, Heartburn -- Overview, Gastroesophageal Reflux Disease (Alternative Therapy), DI for Gastroesophageal Reflux Disease (GERD) Additional Instructions: Return to the emergency room for worsening symptoms. Please take Pepcid as directed. Follow-up with gastroenterology in 1 to 2 days without fail for further evaluation and treatment options. - Post Discharge Activity
[2019-11-06 16:32] LABS: ANISOCYTOSIS 2+
== END 2019-11-06 13:15 | disposition home or self-care (01) ==
LOC: JERFT 11:16
DX: K21.9 Gastro-esophageal reflux disease without esophagitis (principal)
CPT/HCPCS: 36415; 80053; 83690; 84703; 85025; 99282-25

== ENCOUNTER 2020-12-15 10:47 | Emergency (ER) | payer OTHER ==
[2020-12-15 11:02] VITALS: BP 133/82; PULSE 107; TEMP 98.7; BMI 41.1
== END 2020-12-15 13:33 | disposition home or self-care (01) ==
LOC: JER 10:47 → JERFT 10:47 → JER 13:33
DX: F41.9 Anxiety disorder, unspecified (principal); G47.00 Insomnia, unspecified
CPT/HCPCS: 93005; 93010; 99284-25

== ENCOUNTER 2020-12-19 13:16 | Emergency (ER) | payer OTHER ==
[2020-12-19 14:56] VITALS: BP 130/84; PULSE 99; TEMP 98.3; BMI 41.1
[2020-12-19] MEDS ORDERED: DEXAMETHASONE 4 MG TABLET (FP) PO ONE (15:15)
[2020-12-19] MEDS ORDERED: DEXAMETHASONE SOD PHOSPHATE 10 MG/1 ML VIAL ONE (15:26)
== END 2020-12-19 15:35 | disposition home or self-care (01) ==
LOC: JER 13:16
DX: R20.3 Hyperesthesia (principal); U07.1 COVID-19
CPT/HCPCS: 71046-TC-FY; 99283-25

== ENCOUNTER 2020-12-21 10:23 | Emergency (ER) | payer OTHER ==
[2020-12-21 10:51] VITALS: TEMP 98.3; BMI 41.1
[2020-12-21 12:06] LABS: BASO % 0.7 % (0-2.0); EOS % 0.1 % (0-4.5); HEMATOCRIT 32.4 % (32.4-45.2); HEMOGLOBIN 10.9 GM/dL (10.7-15.3); LYMPH % 32.1 % (8-40); MCHC 33.5 g/dl (32.0-36.0); MEAN PLT VOLUME 8.8 fl (7.5-11.1); NEUT % 58.1 % (42.8-82.8); PLATELET COUNT 778 K/MM3 (134-434); RBC 5.49 M/mm3 (3.60-5.2); RDW 19.5 % (11.6-15.6); WHITE BLOOD COUNT 10.1 K/mm3 (4.0-10.0)
[2020-12-21 12:08] LABS: MCH 19.8 pg (25.7-33.7)
[2020-12-21 12:11] LABS: INR 1.1 (0.83-1.09); PROTHROMBIN TIME (PATIENT) 13.5 SEC (9.7-13.0)
[2020-12-21 12:14] LABS: ACTIVATED PTT 25.1 SECONDS (25.2-36.5)
[2020-12-21] MEDS ORDERED: ACETAMINOPHEN 325 MG TABLET (FP) PO ONE (12:18)
[2020-12-21] MEDS ORDERED: ACETAMINOPHEN 325 MG TABLET (FP) ONE (12:20)
[2020-12-21 12:34] LABS: CHLORIDE 103 mmol/L (98-107); POTASSIUM 3.7 mmol/L (3.5-5.1); SODIUM 140 mmol/L (136-145)
[2020-12-21 12:36] LABS: CALCIUM 9.3 mg/dL (8.5-10.1)
[2020-12-21 12:37] LABS: ANION GAP 7 MMOL/L (8-16); BLOOD UREA NITROGEN 8.1 mg/dL (7-18); CO2 31 mmol/L (21-32); GLUCOSE,RANDOM 96 mg/dL (74-106)
[2020-12-21 12:40] LABS: ANISOCYTOSIS 3+; CREATININE 0.8 mg/dL (0.55-1.3); MACROCYTOSIS 0; OVALOCYTE 1+; PLATELET ESTIMATE INCREASED; SGOT/AST 16 U/L (15-37); SGPT/ALT 31 U/L (13-61); TARGET CELLS 1+
[2020-12-21 12:41] LABS: BILIRUBIN,TOTAL 0.5 mg/dL (0.2-1); TOT PROT 8.2 g/dl (6.4-8.2)
[2020-12-21 12:42] LABS: ALK PHOS 67 U/L (45-117)
[2020-12-21 13:13] VITALS: BP 139/78; PULSE 89
== END 2020-12-21 13:13 | disposition home or self-care (01) ==
LOC: JER 10:23
DX: R07.89 Other chest pain (principal); M54.6 Pain in thoracic spine; D47.3 Essential (hemorrhagic) thrombocythemia
CPT/HCPCS: 36415; 71046-TC-FY; 80053; 82550; 83880; 84484; 85025; 85610; 85730; 93005; 93010; 99285-25

== ENCOUNTER 2021-02-17 10:58 | Emergency (ER) | payer OTHER ==
[2021-02-17 11:25] VITALS: BP 129/83; PULSE 87; TEMP 97.8; BMI 42.4
[2021-02-17 12:22] LABS: BASO % 1.4 % (0-2.0); EOS % 0.4 % (0-4.5); HEMATOCRIT 28.1 % (32.4-45.2); HEMOGLOBIN 9.4 GM/dL (10.7-15.3); MCHC 33.3 g/dl (32.0-36.0); MEAN CELL VOLUME 57.6 fl (80-96); MEAN PLT VOLUME 8.7 fl (7.5-11.1); MONO % 4.4 % (3.8-10.2); NEUT % 71.8 % (42.8-82.8); PLATELET COUNT 526 K/MM3 (134-434); RBC 4.88 M/mm3 (3.60-5.2); RDW 20.4 % (11.6-15.6); WHITE BLOOD COUNT 9.6 K/mm3 (4.0-10.0)
[2021-02-17 12:24] LABS: MCH 19.2 pg (25.7-33.7)
[2021-02-17 15:45] LABS: ANISOCYTOSIS 1+; MACROCYTOSIS 0; OVALOCYTE 1+; PLATELET ESTIMATE INCREASED; TARGET CELLS 1+
== END 2021-02-17 13:04 | disposition home or self-care (01) ==
LOC: JER 10:58
DX: R07.89 Other chest pain (principal)
CPT/HCPCS: 36415; 71046-TC-FY; 82550; 84484; 84703; 85025; 93005; 93010; 99285-25

== ENCOUNTER 2021-05-24 06:21 | Emergency (ER) | payer OTHER ==
[2021-05-24 06:57] VITALS: BMI 43.2
[2021-05-24] MEDS ORDERED: FAMOTIDINE 20 MG/50 ML IVPB 20 MG/50 ML MG IVPB ONE ×2 (07:49→08:20)
[2021-05-24] MEDS ORDERED: MAG HYDROX/AL HYDROX/SIMETH 30 ML UNIT-DOSE CUP PO ONE (07:49)
[2021-05-24] MEDS ORDERED: ONDANSETRON 4 MG/2 ML VIAL IVPUSH ONE (08:07)
[2021-05-24] MEDS ORDERED: MAG HYDROX/AL HYDROX/SIMETH 30 ML UNIT-DOSE CUP ONE (08:19)
[2021-05-24] MEDS ORDERED: ONDANSETRON 4 MG/2 ML VIAL ONE (08:20)
[2021-05-24 08:45] LABS: BASO % 1.8 % (0-2.0); EOS % 1.3 % (0-4.5); HEMATOCRIT 33.8 % (32.4-45.2); HEMOGLOBIN 10.9 GM/dL (10.7-15.3); LYMPH % 28.1 % (8-40); MCHC 32.3 g/dl (32.0-36.0); MEAN CELL VOLUME 55.8 fl (80-96); MEAN PLT VOLUME 8.7 fl (7.5-11.1); MONO % 5.4 % (3.8-10.2); NEUT % 63.4 % (42.8-82.8); PLATELET COUNT 396 10^3/uL (134-434); RBC 6.06 M/mm3 (3.60-5.2); RDW 22.6 % (11.6-15.6); WHITE BLOOD COUNT 10.3 K/mm3 (4.0-10.0)
[2021-05-24 09:00] LABS: CHLORIDE 108 mmol/L (98-107); SODIUM 140 mmol/L (136-145)
[2021-05-24 09:02] LABS: ALBUMIN 3.9 g/dl (3.4-5.0); ANION GAP 8 MMOL/L (8-16); BLOOD UREA NITROGEN 8.2 mg/dL (7-18); CALCIUM 9.2 mg/dL (8.5-10.1); CO2 24 mmol/L (21-32); GLUCOSE,RANDOM 129 mg/dL (74-106)
[2021-05-24 09:03] LABS: LIPASE 101 U/L (73-393)
[2021-05-24 09:05] LABS: CREATININE 0.6 mg/dL (0.55-1.3); SGOT/AST 9 U/L (15-37); SGPT/ALT 18 U/L (13-61)
[2021-05-24 09:07] LABS: BILIRUBIN,TOTAL 0.4 mg/dL (0.2-1); TOT PROT 8.4 g/dl (6.4-8.2)
[2021-05-24 09:08] LABS: ALK PHOS 70 U/L (45-117)
[2021-05-24 09:23] LABS: PH,URINE 6.5 (5.0-8.0); URINE APPEARANCE Clear; URINE BILIRUBIN Negative (NEGATIVE); URINE COLOR Yellow; URINE GLUCOSE (UA) Negative (NEGATIVE); URINE KETONE Negative (NEGATIVE); URINE LEUK ESTERASE Negative (NEGATIVE); URINE NITRITE Negative (NEGATIVE); URINE PROTEIN Negative (NEGATIVE); URINE UROBILINOGEN 0.2 mg/dL (0.2-1.0)
[2021-05-24 11:10] VITALS: BP 132/88; PULSE 88; TEMP 98.9
[2021-05-24 11:16] LABS: ANISOCYTOSIS 3+; MACROCYTOSIS 0; PLATELET ESTIMATE NORMAL
== END 2021-05-24 11:11 | disposition home or self-care (01) ==
LOC: JER 06:21
PROC: 3E033GC Introduction of Other Therapeutic Substance into Peripheral Vein, Percutaneous Approach (ICD-10-PCS; principal; 2021-05-24)
PROC: 3E033GC Introduction of Other Therapeutic Substance into Peripheral Vein, Percutaneous Approach (ICD-10-PCS; 2021-05-24)
DX: K21.9 Gastro-esophageal reflux disease without esophagitis (principal)
CPT/HCPCS: 36415; 71045-TC-FY; 76705-TC; 80053; 81003; 83690; 84484; 84703; 85025; 93005; 93010; 99285-25

== ENCOUNTER 2021-09-20 12:36 | Emergency (ER) | payer OTHER ==
[2021-09-20 12:50] VITALS: BP 141/94; PULSE 94; TEMP 98.2; BMI 42.5
[2021-09-20] MEDS ORDERED: IBUPROFEN 600 MG TABLET (FP) PO ONE ×2 (13:24→13:36)
== END 2021-09-20 13:47 | disposition home or self-care (01) ==
LOC: JER 12:36
DX: M79.601 Pain in right arm (principal)
CPT/HCPCS: 99283-25

== ENCOUNTER 2023-09-15 15:26 | Emergency (ER) | payer SELFPAY ==
[2023-09-15 15:51] VITALS: BP 135/88; PULSE 88; RESP 18; TEMP 98.5; BMI 42.2
[2023-09-15 17:11] LABS: BASO % 1.5 % (0-2.0); HEMATOCRIT 28.3 % (32.4-45.2); HEMOGLOBIN 8.7 GM/dL (10.7-15.3); LYMPH % 36.9 % (8-40); MCHC 30.9 g/dl (32.0-36.0); MEAN CELL VOLUME 63.2 fl (80-96); MONO % 8.1 % (3.8-10.2); NEUT % 51.5 % (42.8-82.8); PLATELET COUNT 502 10^3/uL (134-434); RBC 4.47 M/mm3 (3.60-5.2); RDW 20.5 % (11.6-15.6); WHITE BLOOD COUNT 11.2 K/mm3 (4.0-10.0)
[2023-09-15 17:12] LABS: MCH 19.5 pg (25.7-33.7)
[2023-09-15 17:29] LABS: EPI CELLS 10 /uL (0-25.1); HYALINE CASTS 0 /uL (0-3.1); PH,URINE 6.5 (5.0-8.0); URINE APPEARANCE CLEAR; URINE BACTERIA 51 /uL (0-1359); URINE BILIRUBIN NEGATIVE (NEGATIVE); URINE COLOR RED; URINE GLUCOSE (UA) NEGATIVE (NEGATIVE); URINE KETONE NEGATIVE (NEGATIVE); URINE LEUK ESTERASE TRACE (NEGATIVE); URINE NITRITE NEGATIVE (NEGATIVE); URINE PROTEIN 1+ (NEGATIVE); URINE RBC 7657 /uL (0-23.9); URINE WBC 8 /uL (0-25.8)
[2023-09-15 17:36] LABS: ANISOCYTOSIS 3+; MACROCYTOSIS 0; OVALOCYTE 1+; TARGET CELLS 2+
[2023-09-15] MEDS ORDERED: ACETAMINOPHEN 1000 MG/100 ML BAG IVPB ONE (18:09)
[2023-09-15] MEDS ORDERED: ACETAMINOPHEN INJECTION 100 ML IVPB ONE (18:17)
[2023-09-15 18:22] LABS: INR 0.96 (0.83-1.09); PROTHROMBIN TIME (PATIENT) 11.1 SEC (9.7-13.0)
[2023-09-15 18:46] LABS: CALCIUM 9.1 mg/dL (8.5-10.1)
[2023-09-15 18:47] LABS: BLOOD UREA NITROGEN 6.2 mg/dL (7-18)
[2023-09-15 18:50] LABS: CREATININE 0.7 mg/dL (0.55-1.3)
== END 2023-09-15 21:21 | disposition home or self-care (01) ==
LOC: JER 15:26
PROC: 3E033NZ Introduction of Analgesics, Hypnotics, Sedatives into Peripheral Vein, Percutaneous Approach (ICD-10-PCS; principal; 2023-09-15)
DX: N93.9 Abnormal uterine and vaginal bleeding, unspecified (principal); R06.02 Shortness of breath; R53.83 Other fatigue; R10.30 Lower abdominal pain, unspecified; N80.03 Adenomyosis of the uterus
CPT/HCPCS: 36415; 76830-TC; 80048; 81003; 84703; 85025; 85610; 86850; 86900; 86901; 87086; 99284-25

== ENCOUNTER 2024-05-04 05:13 | Emergency (ER) | payer OTHER ==
[2024-05-04 05:22] VITALS: BP 138/96; PULSE 87; RESP 20; TEMP 98; BMI 42.5
[2024-05-04] MEDS ORDERED: KETOROLAC TROMETHAMINE 30 MG/1 ML VIAL ONE (05:34)
[2024-05-04] MEDS: KETOROLAC TROMETHAMINE 30 MG/1 ML VIAL IM ONE (05:39)
[2024-05-04] MEDS ORDERED: LIDOCAINE 5% TOPICAL PATCH ONE (05:42)
[2024-05-04] MEDS: LIDOCAINE 5% TOPICAL PATCH TP ONE (05:45)
[2024-05-04 05:48] LABS: PH,URINE 6.5 (5.0-8.0); URINE APPEARANCE CLEAR; URINE BILIRUBIN NEGATIVE (NEGATIVE); URINE COLOR YELLOW; URINE GLUCOSE (UA) NEGATIVE (NEGATIVE); URINE KETONE NEGATIVE (NEGATIVE); URINE LEUK ESTERASE NEGATIVE (NEGATIVE); URINE NITRITE NEGATIVE (NEGATIVE); URINE PROTEIN NEGATIVE (NEGATIVE); URINE UROBILINOGEN 0.2 mg/dL (0.2-1.0)
[2024-05-04] MEDS ORDERED: LIDOCAINE PATCH REMOVAL MC SCH (22:00)
== END 2024-05-04 07:04 | disposition home or self-care (01) ==
LOC: JER 05:13
PROC: 3E0133Z Introduction of Anti-inflammatory into Subcutaneous Tissue, Percutaneous Approach (ICD-10-PCS; principal; 2024-05-04)
DX: M54.50 Low back pain, unspecified (principal)
CPT/HCPCS: 71046-TC-FY; 81003; 99284-25

== ENCOUNTER 2025-06-24 16:08 | Emergency (ER) | payer OTHER ==
[2025-06-24 16:31] VITALS: TEMP 99.1; BMI 42.9
[2025-06-24 18:12] LABS: EOSINOPHILS # 0.52 x10^3/uL (0.04-0.36)
[2025-06-24 18:13] LABS: ABSOLUTE IMMATURE GRANULOCYTES 0.07 x10^3/uL (0.0-0.031); BASOPHILS # 0.12 x10^3/uL (0.01-0.08); EOSINOPHIL % 3.5 % (0.7-5.8); IMMATURE PLATELET FRACTION # 18.90 x10^3/uL; MCHC 31.4 g/dl (32.2-35.5); MEAN CELL VOLUME 61.3 fl (79.4-94.8); MONOCYTE # 1.08 x10^3/uL (0.24-0.86); MONOCYTE % 7.3 % (4.7-12.5); RDW 19.5 % (12.1-16.8)
[2025-06-24 18:32] LABS: EPI CELLS 20 /uL (0-25.1); HYALINE CASTS 0 /uL (0-3.1); URINE APPEARANCE CLEAR; URINE BACTERIA 497 /uL (0-1359); URINE BILIRUBIN NEGATIVE (NEGATIVE); URINE COLOR YELLOW; URINE GLUCOSE (UA) NEGATIVE (NEGATIVE); URINE KETONE NEGATIVE (NEGATIVE); URINE LEUK ESTERASE NEGATIVE (NEGATIVE); URINE NITRITE NEGATIVE (NEGATIVE); URINE PROTEIN 1+ (NEGATIVE); URINE UROBILINOGEN 1.0 mg/dL (0.2-1.0); URINE WBC 5 /uL (0-25.8)
[2025-06-24 18:34] LABS: INR 1.15 (0.83-1.09); PROTHROMBIN TIME (PATIENT) 12.5 SEC (9.7-13.0)
[2025-06-24 18:38] LABS: ACTIVATED PTT 27.3 SECONDS (25.2-36.5)
[2025-06-24 18:49] LABS: CO2 28.0 mmol/L (21-32); GLUCOSE,RANDOM 140.0 mg/dL (74-106)
[2025-06-24 18:52] LABS: CREATININE 0.9 mg/dL (0.55-1.3)
[2025-06-24 18:53] LABS: SGOT/AST 24.0 U/L (15-37); SGPT/ALT 36.0 U/L (13-61); URINE RBC 22.9 /uL (0-23.9)
[2025-06-24] MEDS ORDERED: KETOROLAC TROMETHAMINE 15 MG/ML VIAL ONE (18:53)
[2025-06-24 18:54] LABS: TOT PROT 8.2 g/dl (6.4-8.2)
[2025-06-24 18:55] LABS: ALK PHOS 85.0 U/L (45-117)
[2025-06-24] MEDS: KETOROLAC TROMETHAMINE 15 MG/ML VIAL IVPUSH ONE (18:58)
[2025-06-24] MEDS: SODIUM CHLORIDE 500 ML IV STA (20:39)
[2025-06-24 20:48] VITALS: BP 115/65
[2025-06-24 21:47] VITALS: PULSE 106; RESP 20
[2025-06-24 23:51] LABS: HIV INTERPRETATION NEGATIVE (NEGATIVE)
[2025-06-25 20:24] LABS: HCV DIAGNOSTIC IN-HOUSE W/RFLX NON-REACTIVE (NONREACTIVE)
== END 2025-06-24 21:47 | disposition home or self-care (01) ==
LOC: JER 16:08
PROC: 3E0333Z Introduction of Anti-inflammatory into Peripheral Vein, Percutaneous Approach (ICD-10-PCS; principal; 2025-06-24)
PROC: 3E0337Z Introduction of Electrolytic and Water Balance Substance into Peripheral Vein, Percutaneous Approach (ICD-10-PCS; 2025-06-24)
DX: R05.9 Cough, unspecified (principal); R68.83 Chills (without fever); J34.89 Other specified disorders of nose and nasal sinuses; R07.81 Pleurodynia; R00.0 Tachycardia, unspecified; J06.9 Acute upper respiratory infection, unspecified
CPT/HCPCS: 36415; 71045-TC-FY; 71275-TC; 80053; 81003; 84439; 84443; 84484; 84703; 85025; 85379; 85610; 85730; 86803; 87389; 87637-QW; 93005; 93010; 99285-25; Q9967